=== PATIENT | male | born 1990 | race African-American/Black ===

== ENCOUNTER 2018-05-18 11:44 | Emergency (ER) | payer OTHER, MEDICAID | END 2018-05-18 13:33 | disposition home or self-care (01) | LOC: FTE 11:44 | DX: J02.9 Acute pharyngitis, unspecified (principal) | CPT/HCPCS: 99283; Z7502 ==

== ENCOUNTER 2018-12-05 15:35 | Emergency (ER) | payer OTHER ==
[2018-12-05] MEDS: ACETAMINOPHEN 325 MG TAB PO (20:44)
[2018-12-05] MEDS: IBUPROFEN 200 MG TAB PO (20:44)
[2018-12-05] MEDS: AZITHROMYCIN 250 MG TAB PO (20:52)
== END 2018-12-05 20:45 | disposition home or self-care (01) ==
LOC: FTE 15:35
DX: J03.90 Acute tonsillitis, unspecified (principal)
CPT/HCPCS: 99283; Z7502